=== PATIENT | female | born 2000 | race Caucasian/White ===

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

== ENCOUNTER 2022-03-08 10:58 | Outpatient (CLI) | payer MEDICAID | END 2022-03-08 10:59 | disposition home or self-care (01) | LOC: NS 10:58 | PROVIDERS: ATTEND Pediatrics | DX: E20.9 Hypoparathyroidism, unspecified (principal); E03.9 Hypothyroidism, unspecified; R63.4 Abnormal weight loss; Z71.3 Dietary counseling and surveillance; Z71.89 Other specified counseling; Z68.22 Body mass index [BMI] 22.0-22.9, adult | CPT/HCPCS: 97802 ==

== ENCOUNTER 2023-10-16 08:00 | Outpatient (CLI) | payer MEDICAID | END 2023-10-16 23:59 | disposition home or self-care (01) | LOC: LAB.N 08:00 | PROVIDERS: ATTEND Family Medicine | DX: R30.0 Dysuria (principal) | CPT/HCPCS: 87077; 87086 ==

== ENCOUNTER 2023-11-29 11:21 | Outpatient (CLI) | payer MEDICAID ==
[2023-11-29 20:48] LABS: CHLAMYDIA TRACHOMATIS DNA NEGATIVE (NEGATIVE); NEISSERIA GONORRHOEAE DNA NEGATIVE (NEGATIVE); TRICHOMONAS VAGINALIS DNA NEGATIVE (NEGATIVE)
== END 2023-11-29 11:22 | disposition home or self-care (01) ==
LOC: LAB 11:21
PROVIDERS: ATTEND Nurse Practitioner
DX: Z33.2 Encounter for elective termination of pregnancy (principal)
CPT/HCPCS: 86900; 86901; 87491; 87591; 87661